=== PATIENT | female | born 1985 | race Caucasian/White ===

== ENCOUNTER 2016-10-07 09:54 | Inpatient (IN) | payer OTHER ==
--- NOTE | ~2016-10-07 | PN ---
Unit #: [id number] #: [id number] Patient: PAT ZAMORANO [id number] [facility] [address] [place] [address] [id number] I MR#: [id number] NAME: PAT ZAMORANO. ROOM: P113 Age: 30 Sex: F Admission Date: 10/07/2016 : 1985 Attending Physician: Luis King M.D. Admitting Physician: Luis King M.D. Primary Care Physician: Primary Care Physician Pamella WALTERSCE PROGRESS NOTES DATE 10/12/2016 DISCUSSION Ms. Pat Zamorano is a 30-year-old female, seen on 10/12/2016. The patient interviewed, chart reviewed, and obtained information from the nursing staff. The patient's thoughts continue to be disorganized, guarded, paranoid. The patient's vital signs, 97.6, 108, 16, and 148/92. The patient still isolative, guarded. REVIEW OF SYSTEMS Complete review of systems unremarkable. MENTAL STATUS EXAMINATION General appearance: Patient dressed in hospital attire. Attention span and concentration, poor. Orientation in place. Mood and affect, labile. Speech, very slow almost whispering. Thought process, circumstantial, guarded, delusional, paranoid, reported still hearing voices, suicidal ideation. Recent and remote memory, poor. Insight and judgment, poor. DIAGNOSIS Bipolar mood disorder, NOS. ASSESSMENT/PLAN Advised to continue with the current medication and therapeutic protocol and if needed consider further adjustment of medication. Dictated by... Aimee Gay/jaimie TD: 10/13/2016 07:18 JOB #: [id number] Unit #: [id number] #: [id number] Patient: PAT ZAMORANO [facility] PROGRESS NOTES Page 1 of 1 X Luis King MD X PROGRESS NOTE
--- NOTE | ~2016-10-07 | A ---
[facility] Nutrition Therapy DATE: 10/08/16 Patient: REGIS ZAMORANO Physician: [facility] Address: [address] Room/Bed: [address], Zip: [place] [address] Admit Date: 10/07/16 Date of : [birth year] Height: 5 3 Weight: 97 44.452 NUTRITIONAL ASSESSMENT: REASON: LOW BMI (17.4) PATIENT ADMITTED FOR PARANOIA, HALLUCINATIONS, PSYCHOSIS PMH: NONE Anthropometrics: HT: 5'3", WT: 98#, BMI: 17.4 Labs: 10/08/16- NUTRITIONAL LABS WNL Meds: ZYPREXA Assessment: PATIENT IS A 30 Y/O FEMALE ADMITTED FOR PARANOIA, HALLUCINATIONS, AND PSYCHOSIS. PATIENT LIVES WITH FAMILY, SMOKES 1 PPD, AND HAS A HX OF MARIJUANA AND HEROIN USE. PATIENT'S TOX SCREEN WAS NEGATIVE. PER NEEDS ASSESSMENT PATIENT STATED A POOR APPETITE WITH A 15# WEIGHT LOSS OVER LAST SEVERAL MONTHS. CURRENT PO INTAKES ARE UNKNOWN. THERE ARE NO SKIN OR GI ISSUES NOTED ATT. PATIENT IS ON A REGULAR DIET. HER BMI IS BELOW A HEALTHY RANGE OF 19-25 AND SHE IS 85% OF HER IBW. Dx: INADEQUATE NUTRIENT INTAKE R/T CURRENT CONDITION AEB LOW BMI, <90% IBW, SELF-REPORTED WEIGHT LOSS, DECREASED APPETITE Intervention: REGULAR DIET, MEDS PER MD, PSYCH Monitoring, Evaluation and Goals: 1. ADEQUATE PO INTAKES >75% OF MEALS 2. PREVENT, CORRECT MICRO/MACRO NUTRIENT DEFICIENCIES 3. WEIGHT; PROMOTE A STEADY WEIGHT GAIN TOWARDS A HEALTHY BMI OF 19-25, PREVENT WEIGHT LOSS MONITOR: WEIGHTS, LABS, PO/FLUID INTAKES Recommendations: 1. CONTINUE REGULAR DIET TOLERATED. OFFER SNACKS BETWEEN MEALS. INCREASE ENTREES TO LARGE PORTIONS D/T NEED FOR INCREASED CALORIC INTAKE 2. ENCOURAGE AEQUATE PO AND FLUID INTAKES 3. IF PO INTAKES ARE BELOW 75% OF MEALS PLEASE ORDER ENSURE BID TO PROMOTE ADEQUATE KCAL AND PROTEIN INTAKES 4. OBTAIN WEIGHTS ROUTINELY (EVERY 3-4 DAYS) [facility] Nutrition Therapy DATE: 10/08/16 Patient: REGIS ZAMORANO Physician: [facility] Address: [address] Room/Bed: [address], Zip: [place] [address] Admit Date: 10/07/16 Date of : [birth year] Height: 5 3 Weight: [address] TO F/U PER PROTOCOL AND PRN R/T PATIENT MILDLY COMPROMISED Respectfully, CHRISSY JACOBSON RD, LD Food and Nutritional Services [facility] cc: client file
--- NOTE | ~2016-10-07 | PN ---
Unit #: [id number] #: [id number] Patient: PAT ZAMORANO [id number] [facility] [address] [place] [address] [id number] I MR#: [id number] NAME: PAT ZAMORANO. ROOM: P113 Age: 30 Sex: F Admission Date: 10/07/2016 : 1985 Attending Physician: Luis King M.D. Admitting Physician: Luis King M.D. Primary Care Physician: Primary Care Physician Pamella ALANIS PROGRESS NOTES DATE OF SERVICE: 10/09/2016 DISCUSSION Ms. Pat Zamorano is a 30-year-old female, seen on 10/09/2016. The patient interviewed, chart reviewed, and obtained information from nursing staff. The patient continues to be withdrawn, isolative, flat affect, sad, dysphoric, still hearing voices, suicidal ideation. Complete review of systems unremarkable. MENTAL STATUS EXAMINATION General appearance, the patient dressed in hospital attire. Attention span and concentration, poor. Oriented in place and person. Mood and affect, labile. Speech, slow. Thought process; circumstantial, guarded, having suicidal ideation, paranoia, hallucination. Recent and remote memory, poor. Insight and judgment, poor. DIAGNOSIS Bipolar mood disorder, not otherwise specified. ASSESSMENT AND PLAN Advised to continue with current combination of Celexa, Vistaril, and Zyprexa. If needed, consider further adjustment of medication. Dictated by... Aimee Gay/maria c TD: 10/09/2016 15:37 JOB #: [id number] [facility] PROGRESS NOTES Page 1 of 1 X Luis King MD PROGRESS NOTE
--- NOTE | ~2016-10-07 | PN ---
Unit #: [id number] #: [id number] Patient: PAT ZAMORANO [id number] [facility] [address] [place] [address] [id number] I MR#: [id number] NAME: PAT ZAMORANO. ROOM: P113 Age: 30 Sex: F Admission Date: 10/07/2016 : 1985 Attending Physician: Luis King M.D. Admitting Physician: Luis King M.D. Primary Care Physician: Primary Care Physician Pamella ALANIS PROGRESS NOTES DATE 10/11/2016 DISCUSSION Pat Zamorano is a 30-year-old female seen on 10/11/2016. Patient interviewed, chart reviewed, obtained information from the nursing staff. Patient tolerating medication fairly well. Continues to be isolative, guarded, flat affect. Vital signs stable, 98.0, __, 21, 148/109. Patient still having symptoms of depression, psychosis. Complete review of systems unremarkable. MENTAL STATUS EXAMINATION General appearance: Patient is dressed casually in hospital attire. Attention span and concentration poor. Oriented in place and person. Mood and affect sad and dysphoric. Speech monotone. Thought process concrete. Patient guarded, paranoid, hallucinations, suicidal ideation. Recent and remote memory poor. Insight and judgement poor. DIAGNOSIS Bipolar mood disorder NOS versus major depressive disorder, recurrent. ASSESSMENT AND PLAN Advise to continue with current medication and therapeutic protocol. If needed, consider further adjustment of medication. Dictated by... Aimee Gay TD: 10/12/2016 10:07 JOB #: [id number] Unit #: [id number] #: [id number] Patient: PAT ZAMORANO [facility] PROGRESS NOTES Page 1 of 1 X Luis King MD PROGRESS NOTE
--- NOTE | ~2016-10-07 | PN ---
Unit #: [id number] #: [id number] Patient: PAT ZAMORANO [id number] [facility] [address] [place] [address] [id number] I MR#: [id number] NAME: PAT ZAMORANO. ROOM: 13 Age: 30 Sex: F Admission Date: 10/07/2016 : 1985 Attending Physician: Luis King M.D. Admitting Physician: Luis King M.D. Primary Care Physician: Primary Care Physician Pamella ALANIS PROGRESS NOTES DATE OF SERVICE 10/10/2016 DISCUSSION Ms. Pat Zamorano is a 30-year-old female seen on 10/10/2016. The patient interviewed, chart reviewed. Obtained information from nursing staff. The patient continues to be guarded, paranoid. Reported hearing voices. Feeling sad, depressed, suicidal ideation, withdrawn, isolative. Reported having trouble sleeping. Anxiety. Complete Review of Systems: Unremarkable. MENTAL STATUS EXAMINATION General Appearance: The patient dressed casually in hospital attire. Attention span, concentration: Poor. Oriented in place and person. Mood and affect: Sad, dysphoric, flat. Speech: Monotone. Thought process: [place]. The patient reported suicidal ideation, paranoia, hearing voices. Recent and remote memory: Poor. Insight and judgment: Poor. DIAGNOSIS Bipolar mood disorder not otherwise specified. ASSESSMENT/PLAN Advised to continue with current medication and therapeutic protocol. If needed, consider further adjustment of medication. Dictated by... Aimee Gay/ben TD: 10/11/2016 14:23 JOB #: [id number] Unit #: [id number] #: [id number] Patient: PAT ZAMORANO [facility] PROGRESS NOTES Page 1 of 1 X Luis King MD X PROGRESS NOTE
--- NOTE | ~2016-10-07 | PA ---
Unit #: [id number] #: [id number] Patient: PAT CARLIN [id number] [place] [address] [id number] I MR#: [id number] NAME: PAT CARLIN. ROOM: 13 Age: 30 Sex: F Admission Date: 10/07/2016 : 1985 Date of Assessment: 10/08/2016 Attending Physician: Luis King M.D. Admitting Physician: Luis King M.D. Primary Care Physician: Primary Care Physician No PSYCHIATRIC ASSESSMENT INFORMANTS The patient's reliability, fair; chart reliability, good. CHIEF COMPLAINT Suicidal ideation, suicide attempt by drinking bleach. HISTORY OF PRESENT ILLNESS Ms. Pat Carlin is a 30-year-old female, presented with the above-mentioned complaint. The patient presented with psychotic symptom, paranoia, and depression. The patient reported that she drank bleach ware cleaner a week ago. She was having reaction to it. The patient was extremely agitated when she presented to the emergency room, placed on a hold and gave her 1 mg of Ativan. The patient was able to calm down. The patient was extremely anxious, having flight of ideas, poor insight, guarded and paranoid. The patient reported hearing voices telling her to harm herself. Needing inpatient admission at this time for psychiatric stabilization. PAST PSYCHIATRIC HISTORY Remarkable for history of previous treatment, details unknown at this time. FAMILY HISTORY AND SOCIAL HISTORY Poor support system. No known history of any psychiatric illness in the family or any history of abuse. MEDICAL HISTORY Remarkable for history of hypertension. Musculoskeletal; muscle strength and tone, no atrophy or abnormal movement. Gait normal. MEDICATION HISTORY None. ALLERGIES No known drug allergies. SUBSTANCE ABUSE HISTORY History of tobacco use, history of opioid use, marijuana abuse in the past. REVIEW OF SYSTEMS HEENT: Eyes, clear. Ears, nose, mouth, and throat; clear. CARDIOVASCULAR: Unremarkable. RESPIRATORY: Unremarkable. GI: Unremarkable. Unit #: [id number] #: [id number] Patient: PAT CARLIN : Unremarkable. SKIN: Unremarkable. LYMPH NODE: Unremarkable. NEUROLOGIC: Unremarkable. ENDOCRINE: Unremarkable. HEMATOLOGIC: Unremarkable. ALLERGIC/IMMUNOLOGIC: Unremarkable. MUSCULOSKELETAL: Muscle strength and tone, no atrophy or abnormal movement. Gait normal. MENTAL STATUS EXAMINATION CONSTITUTIONAL: Measurement of vital signs; temperature 97.4, pulse 80, respirations 22, blood pressure 148/108. Height 5 feet 3 inches, weight 98 pounds. GENERAL APPEARANCE: The patient dressed casually. The patient did not show any facial deformity. MUSCULOSKELETAL: Muscle strength and tone, no atrophy or abnormal movement. Gait normal. PSYCHIATRIC EXAMINATION Description of speech; regular rate, normal volume, normal articulation, anxious. Description of thought process, circumstantial. Description of association, guarded and paranoid. The patient denied any visual hallucination, but reported auditory hallucination, paranoia, anxiety, depression, suicidal ideation. Description of the patient's judgment; concerning everyday activity, poor. Social situation, poor. Concerning psychiatric condition, poor. Complete mental status examination; oriented in time, place, and person. Recent and remote memory, poor. Attention span and concentration, poor. Speech, rapid. Fund of knowledge, fair. Language, fair. Mood and affect, sad and dysphoric. Insight and judgment, fair to poor. ASSETS AND LIABILITIES Assets; the patient articulate and able to take care of her ADL. Liability, history of depression. ADMITTING DIAGNOSES Psychiatric: 1. Major depressive disorder, recurrent, severe, with psychotic feature, F33.2. 2. Rule out bipolar mood disorder. 3. Psychosis, not otherwise specified, F29.0. Secondary diagnosis: Deferred. Medical diagnosis: Hypertension. Stressors: Psychosocial stressors. PSYCHIATRIC PLAN AND TREATMENT GOAL 1. Advised to admit the patient on the inpatient unit. Provide safe, supportive, and structured environment. 2. Ordered labs; CBC, CMP, UA, and UDS. 3. test. 4. Recommending at this time to start the patient on Celexa 20 mg daily for depression, and Zyprexa 10 mg b.i.d. We will continue to monitor. Also advised Vistaril 25 mg b.i.d. If needed, consider further adjustment of medication. Treatment goal to attain euthymic mood, gain insight into Unit #: [id number] #: [id number] Patient: PAT CARLIN her problem, and learn coping skills. DISCHARGE PLAN Plan to stabilize the patient and consider followup in outpatient program. ESTIMATED LENGTH OF STAY 5 to 7 days. Dictated by... Aimee Gay/maria c TD: 10/09/2016 04:58 JOB #: [id number] PSYCHIATRIC ASSESSMENT Page 1 of 1 X Luis King MD PSYCHIATRIC ASSESSMENT
--- NOTE | ~2016-10-07 | DS ---
Unit #: [id number] #: [id number] Patient: REGIS ZAMORANO [id number] [facility] [address] [place] [address] [id number] I MR#: [id number] NAME: REGIS ZAMORANO. ROOM: [facility] Age: 30 Sex: F Admission Date: 10/07/2016 : 1985 Discharge Date: 10/13/2016 Attending Physician: Luis King M.D. Primary Care Physician: Primary Care Physician No DISCHARGE SUMMARY REASON FOR ADMISSION Depression and suicidal ideation. DIAGNOSTIC STUDIES LABORATORY RESULTS: Unremarkable. HOSPITAL COURSE The patient was admitted to inpatient unit on 10/07/2016 and discharged on 10/13/2016. The patient was treated on the inpatient unit with group therapy, individual therapy, medication management, and structured milieu. The patient responded well with the above modalities of treatment. The patient was able to contract for safety and reported suicidal ideation. Subsequently, the patient was discharged with a plan to follow up in outpatient program. DISCHARGE MEDICATIONS Zyprexa 20 mg at bedtime for psychosis, Vistaril 25 mg b.i.d. for anxiety, Celexa 20 mg at bedtime for depression, and Desyrel 100 mg at bedtime for sleep. DISCHARGE DIAGNOSES Psychiatric: Major depressive disorder, recurrent, severe, with psychotic features, F33.3; rule out bipolar mood disorder, F31.89; psychosis, not otherwise specified, F29.0. Secondary diagnosis: Deferred. Medical diagnosis: Hypertension. Stressors: Psychosocial stressors. DISCHARGE INSTRUCTIONS The patient to follow up in outpatient clinic as per delinquency prevention social worker. CONDITION ON DISCHARGE The patient was pleasant and cooperative. Denied any psychotic symptom or any suicidal ideation. PROGNOSIS Guarded. DIET AND ACTIVITY As tolerated. Unit #: [id number] #: [id number] Patient: REGIS ZAMORANO Dictated by... Aimee Gay/maria c TD: 10/13/2016 14:55 JOB #: [id number] DISCHARGE SUMMARY Page 1 of 1 X Luis King MD X DISCHARGE SUMMARY
--- NOTE | ~2016-10-07 | HP ---
Unit #: [id number] #: [id number] Patient: PAT ZAMORANO [id number] [place] [address] [id number] I MR#: [id number] NAME: PAT ZAMORANO. ROOM: 13 Age: 30 Sex: F Admission Date: 10/07/2016 : 1985 Attending Physician: Luis King M.D. Admitting Physician: Luis King M.D. Primary Care Physician: Primary Care Physician No HISTORY AND PHYSICAL HISTORY OF PRESENT ILLNESS Pat is a 30 year old admitted to [address] [place] [address] with paranoia and reporting visual hallucinations. PAST MEDICAL HISTORY Nothing significant PAST SURGICAL HISTORY 1. Cholecystectomy 2. Pelvic lap ALLERGIES No known drug allergies. SOCIAL HISTORY Smokes one pack per day. Denies alcohol. Has a history of illicit drug use to include heroin and marijuana. FAMILY HISTORY Medically noncontributory. REVIEW OF SYSTEMS CONSTITUTIONAL: No fever or chills. HEENT: Denies any sore throat, ear pain or runny nose. CARDIOVASCULAR: Denies chest pain, irregular heart rhythm or palpitations. CHEST: Denies shortness of breath or cough. No hemoptysis. GASTROINTESTINAL: Denies nausea, vomiting, diarrhea or chronic constipation. ENDOCRINE: Denies history of increased thirst or urination. No recent significant weight loss or gain. GENITOURINARY: Denies dysuria, frequency, or hematuria. SKIN: Denies any rashes. HEMATOLOGIC: Denies history of increased bleeding or bruising. MUSCULOSKELETAL: Denies any hot, swollen joints. No generalized muscle pain. NEUROLOGIC: Denies problems with vision or speech. No frequent, severe headaches. No numbness, tingling or weakness in any extremities. Denies loss of bladder or bowel control. CURRENT MEDICATIONS 1. Zyprexa 10 mg b.i.d. 2. Milk of Magnesia p.r.n. Unit #: [id number] #: [id number] Patient: PAT ZAMORANO 3. Maalox p.r.n. 4. Tylenol p.r.n. 5. Nicotine patch 14 mg q day PHYSICAL EXAMINATION GENERAL: Alert, well-nourished, in no apparent distress. VITAL SIGNS: Blood pressure 148/100, heart rate 80, respirations 16, temperature 98.6. WEIGHT: 96 pounds. HEIGHT: 5'3". SKIN: Warm and dry without rash or lesion. HEENT: Normocephalic. TMs not viewed. Oral and nasal passages clear. Conjunctivae clear. Pupils equal, round and reactive to light and accommodation. Extraocular movements intact. NECK: Supple without lymphadenopathy or thyromegaly. HEART: Regular rate and rhythm without murmur. LUNGS: Clear. ABDOMEN: Soft, nontender. : Not done. EXTREMITIES: No evidence of cyanosis, clubbing or edema. Moves all extremities without focal deficit. NEUROLOGICAL: Grossly within normal limits. Cranial Nerves: II: Visual mancuso are intact. III, IV AND : Extraocular movements are intact. Pupils are equal, round and reactive to light. V: Facial sensation is grossly normal. VII: Facial movements and expression are normal. VIII: Auditory acuity grossly intact. IX, X: Uvula is midline. Phonation is normal. XI: Patient shrugs shoulders and turns head normally. XII: Tongue protrudes in the midline. Sensory and Motor Function: Sensory and motor sensation is grossly normal. Motor: moves all extremities well. Coordination: Gait is normal. Deep Tendon Reflexes: Intact. IMPRESSION Psychiatric admission RECOMMENDATIONS PSYCHIATRIC: Per psychiatrist. MEDICAL: I see no contraindications to participating in facility's activities. MEDICAL PROGNOSIS Good. MEDICAL CONDITION Stable. Dictated by... Jo Powers P.A.-C. for Aimee Barrera Unit #: [id number] #: [id number] Patient: PAT ZAMORANO TD: 10/07/2016 21:46 JOB #: [id number] HISTORY AND PHYSICAL Page 1 of 1 X Jo Powers X HISTORY AND PHYSICAL
--- NOTE | ~2016-10-07 | PN ---
Unit #: [id number] #: [id number] Patient: PAT CARLIN [id number] [facility] [address] [place] [address] [id number] I MR#: [id number] NAME: PAT CARLIN. ROOM: P113 Age: 30 Sex: F Admission Date: 10/07/2016 : 1985 Attending Physician: Luis King M.D. Admitting Physician: Luis King M.D. Primary Care Physician: Primary Care Physician No SELENACE PROGRESS NOTES DATE OF SERVICE 10/08/2016 DISCUSSION Ms. Pat Carlin is a 30-year-old female seen on 10/08/2016. Patient interviewed, chart reviewed, obtained information from nursing staff. Patient reported hearing voices. Flat, sad, dysphoric mood, anxious. Patient denied any thoughts of harming self or others but still very sad, depressed, concerned about hallucinations. COMPLETE REVIEW OF SYSTEMS Unremarkable. MENTAL STATUS EXAMINATION GENERAL APPEARANCE: Patient dressed casually. ATTENTION SPAN AND CONCENTRATION: Fair. Oriented in place and person. MOOD AND AFFECT: Sad, dysphoric, flat. SPEECH: Monotone. THOUGHT PROCESS: [place]. Patient reported having hallucinations, passive SI. RECENT AND REMOTE MEMORY: Poor. INSIGHT AND JUDGMENT: Poor. DIAGNOSIS Major depressive disorder, recurrent ASSESSMENT/PLAN Advised to discontinue Cymbalta and Abilify, add Celexa 20 mg daily and continue with Zyprexa 10 mg b.i.d. If needed, consider further adjustment in medication. Dictated by... Aimee Gay/mei TD: 10/08/2016 22:33 JOB #: [id number] Unit #: [id number] #: [id number] Patient: PAT CARLIN [facility] PROGRESS NOTES Page 1 of 1 X Luis King MD X PROGRESS NOTE
[2016-10-08 09:51] LABS: BASOPHIL% 0.6 % (0-2.5); EOSINOPHIL# 0.1 X10e3 (0-0.7); EOSINOPHIL% 1.5 % (0.0-7.0); HEMATOCRIT 51.7 % (35.0-45.0); HEMOGLOBIN 17.1 gm/dL (12.0-16.0); LYMPHOCYTE# 2.3 X10e3 (1.0-3.5); LYMPHOCYTE% 38.4 % (17.0-45.0); MEAN CORPUSCULAR HEMOGLOBIN 31.1 PG (28-34); MEAN PLATELET VOLUME 7.9 FL (6.5-11.5); MONOCYTE# 0.4 X10e3 (0-1.0); MONOCYTE% 7.4 % (3.0-12.0); NEUTROPHIL# 3.1 X10e3 (1.5-7.1); NEUTROPHIL% 52.1 % (40-75); PLATELET COUNT 308 X10e3 (140-420); RED CELL DISTRIBUTION WIDTH 12.1 % (11.0-15.5); WHITE BLOOD COUNT 5.9 X10e3 (4.0-10.5)
[2016-10-08 10:08] LABS: DIFF IND NO
[2016-10-08 10:15] LABS: THYROID STIMULATING HORMONE 0.67 uIU/ml (0.34-5.60)
[2016-10-08 10:21] LABS: ALBUMIN SERUM 4.6 g/dL (3.5-5.0); BILIRUBIN,TOTAL 0.5 mg/dL (0.2-2.0); BUN/CREATININE RATIO 15.55; CALCIUM SERUM 9.7 mg/dL (8.4-10.2); CREATININE SERUM 0.9 mg/dL (0.6-1.4); GLOM FILT RATE Estimated 87.1 mL/min (>60); POTASSIUM 4.3 mmol/L (3.5-5.1)
[2016-10-08 10:22] LABS: FREE THYROXIN (T4) 0.9 ng/dL (0.58-1.64)
== END 2016-10-13 09:55 | disposition home or self-care (01) | DRG 885 ==
LOC: P1S 09:54
PROVIDERS: Psychiatry & Neurology Psychiatry
DX: F33.3 Major depressive disorder, recurrent, severe with psychotic symptoms (principal); F29 Unspecified psychosis not due to a substance or known physiological condition; R45.851 Suicidal ideations; I10 Essential (primary) hypertension; F17.210 Nicotine dependence, cigarettes, uncomplicated
CPT/HCPCS: 80053; 84439; 84443; 84703; 85025

== ENCOUNTER 2016-10-13 23:55 | Inpatient (IN) | payer OTHER ==
--- NOTE | ~2016-10-13 | PN ---
Unit #: [id number] #: [id number] Patient: PAT ZAMORANO [id number] [facility] [address] [place] [address] [id number] MR#: [id number] NAME: PAT ZAMORANO. ROOM: [facility] Age: 31 Sex: F Admission Date: 10/13/2016 : 1985 Attending Physician: Luis King M.D. Admitting Physician: Luis King M.D. Primary Care Physician: Primary Care Physician Pamella LOWERY NOTES DATE OF SERVICE 10/19/2016 DISCUSSION Pat Zamorano is a 31-year-old female seen on 10/19/2016. The patient interviewed, chart reviewed. Obtained information from nursing staff. The patient was compliant, cooperative. Mood sad, dysphoric, flat affect, guarded. The patient's vital signs stable, 97.9, 92, 16. Blood pressure 155/88, 118. Complete Review of Systems: Unremarkable. MENTAL STATUS EXAMINATION General Appearance: The patient dressed casually. Attention span, concentration: Fair. Oriented in place and person. Mood and affect labile. Speech: Rapid. Thought process: Circumstantial. The patient reported having suicidal ideation, hallucinations, hearing voices. Recent and remote memory: Poor. Insight and judgment: Poor. DIAGNOSES 1. Bipolar mood disorder not otherwise specified. 2. Rule out schizoaffective disorder bipolar type. 3. Hypertension. ASSESSMENT/PLAN Ordered medical consultation to evaluate and treat the patient's hypertension. Increase blood pressure. Continue with current medication. If needed, consider further adjustment of medication. Dictated by... Aimee Gay/ben TD: 10/20/2016 09:07 JOB #: [id number] Unit #: [id number] #: [id number] Patient: PAT ZAMORANO [facility] PROGRESS NOTES Page 1 of 1 X Luis King MD PROGRESS NOTE
--- NOTE | ~2016-10-13 | DS ---
Unit #: [id number] #: [id number] Patient: REGIS ZAMORANO [id number] [place] [address] [id number] I MR#: [id number] NAME: REGIS ZAMORANO. ROOM: 63 Age: 31 Sex: F Admission Date: 10/13/2016 : 1985 Discharge Date: 10/20/2016 Attending Physician: Luis King M.D. Primary Care Physician: Primary Care Physician No DISCHARGE SUMMARY REASON FOR ADMISSION Depression and psychosis. DIAGNOSTIC STUDIES LABORATORY RESULTS: Unremarkable. HOSPITAL COURSE The patient was admitted to inpatient unit on 10/13/2016 and discharged on 10/20/2016. The patient was treated with group therapy, individual therapy, and medication management and responded well with the above modalities of treatment. The patient continues to be anxious, but showed improvement. Subsequently, the patient was discharged with a plan to follow up in outpatient program. DISCHARGE MEDICATIONS Desyrel 100 mg at bedtime for sleep, Celexa 20 mg daily for depression, Zyprexa 20 mg at bedtime for psychosis and mood stabilization, Vistaril 50 mg t.i.d. for anxiety, Haldol 5 mg b.i.d. for psychosis, and Cogentin 1 mg b.i.d. for EPS symptom. DISCHARGE DIAGNOSES Psychiatric: Bipolar mood disorder, not otherwise specified, with psychotic feature, F31.89 and anxiety disorder, not otherwise specified, F41.9. Secondary diagnosis: Deferred. Medical diagnosis: Hypertension. Stressors: Psychosocial stressor. DISCHARGE INSTRUCTIONS The patient to follow up in outpatient clinic as per director of social work. CONDITION ON DISCHARGE The patient was pleasant and cooperative. Denied any psychotic symptom or any suicidal ideation. PROGNOSIS Guarded. DIET AND ACTIVITY As tolerated. Unit #: [id number] #: [id number] Patient: REGIS ZAMORANO Dictated by... Aimee Gay/maria c TD: 10/20/2016 18:17 JOB #: [id number] DISCHARGE SUMMARY Page 1 of 1 X Luis King MD X DISCHARGE SUMMARY
--- NOTE | ~2016-10-13 | PN ---
Unit #: [id number] #: [id number] Patient: PAT ZAMORANO [id number] [facility] [address] [place] [address] [id number] MR#: [id number] NAME: PAT ZAMORANO. ROOM: [facility] Age: 31 Sex: F Admission Date: 10/13/2016 : 1985 Attending Physician: Luis King M.D. Admitting Physician: Luis King M.D. Primary Care Physician: Primary Care Physician Pamella ALANIS PROGRESS NOTES DATE OF SERVICE: 10/18/2016 DISCUSSION Ms. Pat Zamorano is a 30-year-old female, seen on 10/18/2016. The patient interviewed, chart reviewed, and obtained information from nursing staff. The patient was compliant and cooperative. Mood is sad, dysphoric, flat affect, guarded. The patient was guarded, pacing in the hallway, eating good, somewhat guarded, watchful. The patient reported having suicidal ideation and hallucination. REVIEW OF SYSTEMS Complete review of systems unremarkable. MENTAL STATUS EXAMINATION General appearance, the patient is thin built, casually dressed. Attention span and concentration, fair. Oriented in time, place, and person. Mood and affect, sad and dysphoric. Speech, monotone. Thought process, concrete. The patient denied any thoughts of harming self or others. The patient reported hallucination and suicidal ideation. Recent and remote memory, poor. Insight and judgment, poor. DIAGNOSES Bipolar mood disorder, not otherwise specified. ASSESSMENT AND PLAN Advised to continue with current medication and therapeutic protocol. If needed, consider further adjustment of medication. Dictated by... Aimee Gay/maria c TD: 10/20/2016 03:23 JOB #: [id number] Unit #: [id number] #: [id number] Patient: PAT ZAMORANO [facility] PROGRESS NOTES Page 1 of 1 X Luis King MD X PROGRESS NOTE
--- NOTE | ~2016-10-13 | A ---
[facility] Nutrition Therapy DATE: 10/15/16 Patient: REGIS ZAMORANO [facility] Address: [address] Room/Bed: [address], Zip: [place] [address] Admit Date: 10/13/16 Date of : [birth year] Height: 5 3 Weight: [phone] NUTRITIONAL ASSESSMENT: REASON: LOW BMI (18.6) PATIENT ADMITTED FOR DEPRESSION, SI, PSYCHOSIS, HALLUCINATIONS PMH: HTN Anthropometrics: HT: 5'3", WT: 105#, BMI: 18.6 Labs: NUTRITIONAL LABS WNL Meds: DESYREL, CELEXA, ZYPREXA, HALDOL, VISTARIL Assessment: PATIENT IS A 30 Y/O FEMALE ADMITTED FOR PSYCHOSIS, SI, DEPRESSION, AND HALLUCINATIONS. PATIENT WAS D/C'D FROM THIS FACILITY ON 10/13/16. THIS RD ASSESSED PATIENT 10/08/16- NOTE REVIEWED. PATIENT IS CURERNTLY UNEMPLOYED. LIVES WITH FAMILY, AND DENIES SUBSTANCE ABUSE. PATIENT STATED A POOR APPETITE WITH A 15# WEIGHT LOSS OVER LAST SEVERAL MONTHS. NURSING REPORTS GOOD PO INTAKES. WEIGHT HX PER [employer] SHOWS A 6# INCREASE FROM LAST ADMIT 8 DAYS AGO. CURRENT PSYCH MEDS MAY CAUSE WEIGHT AND APPETITE FLUCTUATIONS. THERE ARE NO SKIN OR GI ISSUES NOTED ATT. PATIENT IS ON A REGULAR DIET. Dx: INADEQUATE NUTRIENT INTAKE R/T CURRENT CONDITION AEB LOW BMI, SELF-REPORTED WEIGHT LOSS Intervention: REGULAR DIET, MEDS PER MD, PSYCH Monitoring, Evaluation and Goals: 1. ADEQUATE PO INTAKES >50% OF MEALS 2. PREVENT, CORRECT MICRO/MACRO NUTRIENT DEFICIENCIES 3. PROMOTE A STEADY WEIGHT GAIN TOWARDS A HEALTHY BMI OF 19-25 MONITOR: WEIGHTS, LABS, PO/FLUID INTAKES Recommendations: 1. CONTINUE REGULAR DIET TOLERATED. OFFER SNACKS BETWEEN MEALS. IF PATIENT HAS C/O HUNGER PLEASE SEND ORDER FOR LARGE PORTION ENTREES AND RD WILL APPROVE 2. ENCOURAGE ADEQUATE PO AND FLUID INTAKES 3. OBTAIN WEIGHTS ROUTINELY (EVERY 3-4 DAYS) RD TO F/U PER PROTOCOL AND PRN R/T PATIENT MILDLY COMPROMISED [facility] Nutrition Therapy DATE: 10/15/16 Patient: REGIS ZAMORANO [facility] Address: [address] Room/Bed: P179-2 [facility], Zip: [place] [address] Admit Date: 10/13/16 Date of : [birth year] Height: 5 3 Weight: [phone] Respectfully, CHRISSY JACOBSON RD, LD [facility] cc: client file
--- NOTE | ~2016-10-13 | PN ---
Unit #: [id number] #: [id number] Patient: PAT ZAMORANO [id number] [facility] [address] [place] [address] [id number] MR#: [id number] NAME: PAT ZAMORANO. ROOM: [facility] Age: 30 Sex: F Admission Date: 10/13/2016 : 1985 Attending Physician: Luis King M.D. Admitting Physician: Luis King M.D. Primary Care Physician: Primary Care Physician Pamella ALANIS PROGRESS NOTES DATE OF SERVICE 10/17/2016 DISCUSSION Ms. Pat Zamorano is a 30-year-old female seen on 10/17/2016. The patient interviewed, chart reviewed. Obtained information from nursing staff. The patient continues to be very anxious and paranoid. The patient tolerating medications fairly well, but still having excessive anxiety and mood lability. Reported hearing voices and suicidal ideation. No side effects from medication. Complete Review of Systems: Unremarkable. MENTAL STATUS EXAMINATION General Appearance: The patient thin built, dressed in hospital attire. Attention span, concentration: Poor. Oriented in place and person. Mood and affect labile. Speech: Rapid. Thought process: Circumstantial. The patient reported suicidal ideation, hearing voices, paranoia. Recent and remote memory: Poor. Insight and judgment: Poor. DIAGNOSES 1. Bipolar mood disorder not otherwise specified. 2. Rule out schizoaffective disorder, bipolar type. ASSESSMENT/PLAN Advised to continue with current medication and therapeutic protocol. If needed, consider further adjustment of medication. Dictated by... Aimee Gay/ben TD: 10/18/2016 07:59 JOB #: [id number] Unit #: [id number] #: [id number] Patient: PAT ZAMORANO [facility] PROGRESS NOTES Page 1 of 1 X Luis King MD PROGRESS NOTE
--- NOTE | ~2016-10-13 | PN ---
Unit #: [id number] #: [id number] Patient: REGIS CARLIN [id number] [facility] [address] [place] [address] [id number] I MR#: [id number] NAME: REGIS CARLIN. ROOM: [facility] Age: 30 Sex: F Admission Date: 10/13/2016 : 1985 Attending Physician: Luis King M.D. Admitting Physician: Luis King M.D. Primary Care Physician: Primary Care Physician No ZEKE PROGRESS NOTES DATE OF SERVICE 10/16/2016 DISCUSSION Ms. Regis Carlin is a 30-year-old female seen on 10/16/2016. Patient interviewed, chart reviewed, I obtained information from nursing staff. Patient was compliant, cooperative. Mood sad, dysphoric, flat affect, guarded. Patient was tearful, anxious, nervous, guarded, paranoid, reported having hearing voices, thoughts of harming herself. COMPLETE REVIEW OF SYSTEMS Unremarkable. MENTAL STATUS EXAMINATION GENERAL APPEARANCE: Patient dressed casually. ATTENTION SPAN AND CONCENTRATION: Fair. Oriented in time, place and person. MOOD AND AFFECT: Labile. SPEECH: Rapid. THOUGHT PROCESS: Circumstantial. Reported suicidal ideation, hallucination. RECENT AND REMOTE MEMORY: Poor. INSIGHT AND JUDGMENT: Poor. DIAGNOSES Mood disorder, NOS Psychosis, NOS Rule out schizoaffective disorder ASSESSMENT/PLAN Advised to continue with current medication and therapeutic protocol with a plan to increase Haldol to 5 mg twice daily, Cogentin 1 mg twice daily and increase Vistaril to 50 mg three times a day. If needed, consider further adjustment on medication. Dictated by... Luis King M.D. [facility] Unit #: [id number] #: [id number] Patient: REGIS CARLIN TD: 10/17/2016 00:17 JOB #: [id number] [facility] PROGRESS NOTES Page 1 of 1 X Luis King MD PROGRESS NOTE
--- NOTE | ~2016-10-13 | PA ---
Unit #: [id number] #: [id number] [facility]: [facility] [id number] [facility] [address] [place] [address] [id number] I MR#: [id number] NAME: PAT CARLIN. ROOM: P179 Age: 30 Sex: F Admission Date: 10/13/2016 : 1985 Date of Assessment: 10/14/2016 Attending Physician: Luis King M.D. Admitting Physician: Luis King M.D. Primary Care Physician: Primary Care Physician No PSYCHIATRIC ASSESSMENT HISTORY OF PRESENT ILLNESS Ms. Pat Carlin is a 30-year-old female, presented with psychosis, depression, and hallucination. The patient was discharged yesterday and readmitted due to having suicidal ideation, depression, and hearing voices. The patient carries a diagnosis of schizophrenia and major depressive disorder. The patient reported having suicidal ideation, auditory hallucination, reported severe anxiety, and depression. The patient denied any homicidal ideation or self-injurious behavior. Sleeping good, but feeling paranoid. The patient reports that the thoughts of suicide never stop. The patient has poor insight and poor judgment. Reported having flight of ideas, delusional, responding to internal stimuli. Needing inpatient admission at this time for psychiatric stabilization. PAST PSYCHIATRIC HISTORY Remarkable [facility] on [facility]. FAMILY HISTORY AND SOCIAL HISTORY The patient has good support from her mom. No history of any psychiatric illness in the family. No history of any abuse. MEDICAL HISTORY Remarkable for history of hypertension. Musculoskeletal; muscle strength and tone, no atrophy or abnormal movement. Gait normal. MEDICATION HISTORY The patient is currently on Desyrel 100 mg at bedtime for sleep, Celexa 20 mg daily for depression, Zyprexa 20 mg daily for psychosis, and Vistaril 25 mg b.i.d. for anxiety. ALLERGIES No known drug allergies. SUBSTANCE ABUSE HISTORY History of tobacco use, history of opioid abuse, and marijuana abuse in the past. REVIEW OF SYSTEMS HEENT: Eyes, clear. Ears, nose, mouth, and throat; clear. CARDIOVASCULAR: Unremarkable. RESPIRATORY: Unremarkable. GI: Unremarkable. Unit #: [id number] #: [id number] Patient: PAT CARLIN : Unremarkable. SKIN: Unremarkable. LYMPH NODE: Unremarkable. NEUROLOGIC: Unremarkable. ENDOCRINE: Unremarkable. HEMATOLOGIC: Unremarkable. ALLERGIC/IMMUNOLOGIC: Unremarkable. MUSCULOSKELETAL: Muscle strength and tone, no atrophy or abnormal movement. Gait normal. MENTAL STATUS EXAMINATION CONSTITUTIONAL: Measurement of vital signs; temperature 98.1, heart rate 140, respiratory rate 22, and blood pressure 145/100. Height 5 feet 3 inches and weight 105 pounds. GENERAL APPEARANCE: The patient dressed casually. The patient did not show any facial deformity. MUSCULOSKELETAL: Please see above. PSYCHIATRIC EXAMINATION Description of speech, slow in volume and rate and nonspontaneous. Description of thought process, goal directed. Description of association, intact. Description of abnormal psychotic thinking; the patient reported hallucination, delusions, paranoia, and suicidal ideation. Description of the patient's judgment: Concerning everyday activity, poor. Social situation, poor. Concerning psychiatric condition, poor. Complete mental status examination; oriented in time, place, and person. Recent and remote memory, fair. Attention span and concentration, fair. Language, able to name object and repeat phrases. Fund of knowledge, aware of current event and passive vocabulary intact. Mood and affect, sad and dysphoric. Insight and judgment, fair to poor. ASSETS AND LIABILITIES Assets, the patient is articulate and able to take care of her ADL. Liability, depression and substance abuse. ADMITTING DIAGNOSES Psychiatric: Major depressive disorder, recurrent, severe, with psychotic features, F33.3; rule out bipolar mood disorder; psychosis, not otherwise specified, F29.0; and rule out schizophrenia, chronic paranoid type. Secondary diagnosis: Deferred. Medical diagnosis: Hypertension. Stressors: Psychosocial stressors. PSYCHIATRIC PLAN AND TREATMENT GOAL AND DISCHARGE PLAN 1. Advised to admit the patient on the inpatient unit. Provide safe, supportive, and structured environment. 2. Ordered labs, UA and UDS. 3. Recommending at this time to resume above medication with a plan to add haloperidol 2 mg b.i.d. The patient to attend group therapy, individual therapy, and medication management. TREATMENT GOAL To attain euthymic mood, gain insight into her problem, and learn coping Unit #: [id number] #: [id number] Patient: PAT CARLIN skills. DISCHARGE PLAN Plan to stabilize the patient and consider followup in outpatient program. ESTIMATED LENGTH OF STAY 5 days. Dictated by... Aimee Gay/maria c TD: 10/14/2016 14:56 JOB #: [id number] PSYCHIATRIC ASSESSMENT Page 1 of 1 X Luis King MD PSYCHIATRIC ASSESSMENT
--- NOTE | ~2016-10-13 | HP ---
Unit #: [id number] #: [id number] Patient: PAT ZAMORANO [id number] [place] [address] [id number] I MR#: [id number] NAME: PAT ZAMORANO. ROOM: P179 Age: 30 Sex: F Admission Date: 10/13/2016 : 1985 Attending Physician: Luis King M.D. Admitting Physician: Luis King M.D. Primary Care Physician: Primary Care Physician No HISTORY AND PHYSICAL Pat is a 30 year old admitted to [facility] with increased anxiety and depression. She was recently discharged from this facility for treatment of the same. Patient was seen and H and P dated 10/07/16 was reviewed. This is current. No changes. Please see H and P dated 10/07/16. Dictated by... Jo Powers PPallaviALuis Fernando. for Aimee Barrera/william TD: 10/14/2016 19:16 JOB #: [id number] HISTORY AND PHYSICAL Page 1 of 1 X Jo Powers X HISTORY AND PHYSICAL
--- NOTE | ~2016-10-13 | PN ---
Unit #: [id number] #: [id number] Patient: PAT ZAMORANO [id number] [facility] [address] [place] [address] [id number] I MR#: [id number] NAME: PAT ZAMORANO. ROOM: [facility] Age: 30 Sex: F Admission Date: 10/13/2016 : 1985 Attending Physician: Luis King M.D. Admitting Physician: Luis King M.D. Primary Care Physician: Primary Care Physician Pamella ALANIS PROGRESS NOTES DATE 10/15/2016 DISCUSSION Pat Zamorano is a 30-year-old female, seen on 10/15/2016. The patient interviewed, chart reviewed, and obtained information from the nursing staff. The patient continues to report hearing voices, anxiety, hallucinations, paranoia, and depression. REVIEW OF SYSTEMS Complete review of systems unremarkable. MENTAL STATUS EXAMINATION General appearance: Patient dressed casually. Attention span and concentration, fair. Oriented to place and person. Mood and affect, sad and dysphoric. Speech, rapid. Thought process, circumstantial. The patient reported having suicidal ideation, hallucinations. Recent and remote memory, poor. Insight and judgment, poor. DIAGNOSES 1. Bipolar mood disorder, NOS. 2. Rule out schizophrenia. ASSESSMENT/PLAN Advised to continue with the current medication with the plan to increase Vistaril to 25 mg three times a day if needed consider further adjustment of medication. Dictated by... Aimee Gay/jaimie TD: 10/16/2016 09:08 JOB #: [id number] Unit #: [id number] #: [id number] Patient: PAT ZAMORANO [facility] PROGRESS NOTES Page 1 of 1 X Luis King MD PROGRESS NOTE
[2016-10-14 09:55] LABS: BASOPHIL% 0.4 % (0-2.5); EOSINOPHIL# 0.2 X10e3 (0-0.7); EOSINOPHIL% 2.8 % (0.0-7.0); HEMOGLOBIN 14.4 gm/dL (12.0-16.0); LYMPHOCYTE# 2.3 X10e3 (1.0-3.5); LYMPHOCYTE% 32.1 % (17.0-45.0); MEAN CELL VOLUME 93.6 FL (83-96); MEAN CORPUSCULAR HEMOGLOBIN 31.2 PG (28-34); MEAN CORPUSCULAR HGB CONC 33.4 g/dL (30-36); MEAN PLATELET VOLUME 8.3 FL (6.5-11.5); MONOCYTE# 0.6 X10e3 (0-1.0); MONOCYTE% 8.5 % (3.0-12.0); NEUTROPHIL% 56.2 % (40-75); PLATELET COUNT 255 X10e3 (140-420); WHITE BLOOD COUNT 7.1 X10e3 (4.0-10.5)
[2016-10-14 09:57] LABS: ALBUMIN SERUM 3.6 g/dL (3.5-5.0); BILIRUBIN,TOTAL 0.2 mg/dL (0.2-2.0); BUN/CREATININE RATIO 17.5; CALCIUM SERUM 8.8 mg/dL (8.4-10.2); CREATININE SERUM 0.8 mg/dL (0.6-1.4); GLOM FILT RATE Estimated 100.4 mL/min (>60); POTASSIUM 3.9 mmol/L (3.5-5.1); PROTEIN TOTAL SERUM 6.3 g/dL (6.0-8.3)
[2016-10-14 10:04] LABS: DIFF IND NO
[2016-10-15 11:48] LABS: URINE SOURCE CLEAN CATCH
[2016-10-15 12:33] LABS: URINE BILIRUBIN NEG (NEG); URINE BLOOD NEG (NEG); URINE COLOR YELLOW; URINE GLUCOSE NEG (NEG); URINE KETONE NEG (NEG); URINE LEUKOCYTE ESTERASE TRACE (NEG); URINE NITRATE NEG (NEG); URINE PH 6.5 (5-8); URINE PROTEIN NEG (NEG); URINE SPECIFIC GRAVITY 1.009 (1.003-1.035); URINE UROBILINOGEN 0.2 MG/DL (NEG)
[2016-10-15 12:37] LABS: URBCS1 AUWI 0-2 /[HPF] (0-2); URINE BACTERIA AUWI 2+ (NEGATIVE); URINE SQUAMOUS EPITHELIAL CELL MOD /[HPF]
[2016-10-15 12:42] LABS: URINE APPEARANCE SL HAZY
[2016-10-15 13:02] LABS: AMPHETAMINE NEG (NEG); BARBITURATES NEG (NEG); BENZODIAZEPINES NEG (NEG); COCAINE NEG (NEG); MARIJUANA NEG (NEG); OPIATES NEG (NEG); TRICYCLIC ANTIDEPRESSANTS NEG (NEG); U METHADONE NEG (NEG)
== END 2016-10-20 16:23 | disposition home or self-care (01) | DRG 885 ==
LOC: P1E 23:55 → P2L 10-15 14:28
PROVIDERS: Psychiatry & Neurology Psychiatry
DX: F31.89 Other bipolar disorder (principal); I10 Essential (primary) hypertension; F29 Unspecified psychosis not due to a substance or known physiological condition; F17.210 Nicotine dependence, cigarettes, uncomplicated; F41.9 Anxiety disorder, unspecified
CPT/HCPCS: 80053; 80307; 81003; 84703; 85025